=== PATIENT | male | born 1980 | race Caucasian/White ===

== ENCOUNTER 2016-09-19 14:49 | Inpatient (IN) | payer OTHER ==
[~2016-09-19] VITALS: Ht 180.3 cm; Wt 148.0 kg
[~2016-09-19 14:49] MED LIST: BACTRIM,SEPT1 TABLET PO; CATAPRES0.1 MG PO; CLINDAMYCIN HC300 MG PO; COLACE100 MG PO; CYCLOBENZAPRINE10 MG PO; FLEXERIL10 MG PO; FLONASE16 G1; FLONASE16 G1 BOTH NARES; Flagyl PO; Flonase BOTH NARES; KEFLEX500 MG PO; LISINOPRIL20 MG PO; LISINOPRIL40 MG PO; MEN'S MULTI-VI1 EACH PO; MORPHINE SULFAT15 M1 PO; MORPHINE SULFAT15 MG PO; MOTRIN600 MG PO; NAPROSYN500 MG PO; OXYCODONE HCL5 M1 PO; OXYCODONE HCL5 MG PO; PROMETHAZINE HC25 M1 PO; TOPAMAX100 MG PO; TOPAMAX25 MG PO; TOPAMAX50 MG PO; TRAMADOL HCL50 MG PO; TRAZODONE HCL50 MG PO; Topamax PO; ULTRAM50 MG PO; Zestril,Prinivil PO; oxyCODONE PO
[2016-09-19 15:17] LABS: MCH 28.4 PG (29.0-34.0); MCHC 33.6 G/DL (30.0-36.0); MCV 84.3 FL (86-99); PLATELET COUNT 287 K/uL (156-360); RBC DIS.WIDTH-CV 12.7 % (11.8-14.6); RBC DIS.WIDTH-SD 39.1 % (39-53); RED BLOOD COUNT 5.22 M/uL (4.00-5.50); WHITE BLOOD COUNT 16.8 K/uL (4.1-10.2)
[2016-09-19 15:22] LABS: CHLORIDE 102 mEq/L (99-109); POTASSIUM 3.5 mEq/L (3.7-5.4); SODIUM 137 mEq/L (136-147)
[2016-09-19 15:24] LABS: GLUCOSE 235 mg/dL (70-99)
[2016-09-19 15:25] LABS: ANION GAP 12 MEQ/L (2-14)
[2016-09-19 15:26] LABS: TOTAL BILIRUBIN 1.2 mg/dL (0.0-1.0)
[2016-09-19 15:27] LABS: ALKALINE PHOSPHATASE 123 IU/L (3-129)
[2016-09-19 15:28] LABS: GFR ESTIMATE (CALCULATED) > 59 mL/min/
[2016-09-19 15:29] LABS: UREA NITROGEN (BUN) 14 mg/dL (9-23)
[2016-09-19 15:31] LABS: CREATINE KINASE 404 IU/L (1-294); TOTAL CK 404 IU/L (1-294)
[2016-09-19 15:33] LABS: TROP-I INTERPRETATION NEGATIVE; TROPONIN-I < 0.01 ng/mL (0.0-0.30)
[2016-09-19 15:36] LABS: CK-MB 8.1 ng/mL (0.0-4.9)
[2016-09-19 15:50] LABS: SERUM ETHYL ALCOHOL < 10 mg/dL
[2016-09-19 15:55] LABS: ADD MIUA? YES; BILIRUBIN NEGATIVE; BLOOD NEGATIVE; COLOR YELLOW ((YELLOW)); GLUCOSE (STRIP) 50; KETONES NEGATIVE; LEUKOCYTES NEGATIVE; NITRITE NEGATIVE; PROTEIN (STRIP) 100; SPECIFIC GRAVITY 1.015 (1.000-1.030)
[2016-09-19 16:06] LABS: BASE EXCESS -3.2 mEq/L (-3 to +3); BICARBONATE 26.6 mEq/L (22-26); CARBOXY HGB 1.7 % (0-5); METHEMOGLOBIN 0.8 % (0-1.5); PO2 59 mm Hg (80-100)
[2016-09-19 16:07] LABS: COMMENTS - BLOOD GASES C+; PCO2 68 mm Hg (35-45); SITE RR
[2016-09-19 16:08] LABS: DEVICE VENT; FI02 100 %; MECHANICAL RATE 16 resp/min; MODE AC; PEEP 10 CM/H20; TIDAL VOLUME 650 ML; TOTAL RESP RATE 19 resp/min
[2016-09-19 16:10] LABS: ADD MEDTOX COMMENT Y; AMPHETAMINE NEGATIVE (500 ng/mL); BARBITURATES NEGATIVE (200 ng/mL); BENZODIAZEPINES NEGATIVE (150 ng/mL); COCAINE PRESUMPTIVE POSITIVE (150 ng/mL); INTERNAL CONTROLS VALID? YES; METHADONE NEGATIVE (200 ng/mL); METHAMPHETAMINE NEGATIVE (500 ng/mL); OPIATES (MORPHINE) PRESUMPTIVE POSITIVE (100 ng/mL); OXYCODONE NEGATIVE (100 ng/mL); PHENCYCLIDINE NEGATIVE (25 ng/mL); PROPOXYPHENE NEGATIVE (300 ng/mL); THC CANNABINOIDS PRESUMPTIVE POSITIVE (50 ng/mL); TRICYCLIC ANTIDEPRESSANTS PRESUMPTIVE POSITIVE (300 ng/mL)
[2016-09-19 16:12] LABS: BACTERIA NONE SEEN /HPF; EPITHELIAL CELLS RARE /HPF; MUCUS TRACE /LPF; RED BLOOD CELLS 0-5 /HPF (0-5); UCUL ADDED? NO; WHITE BLOOD CELLS 0-5 /HPF (0-5)
[2016-09-19 16:13] LABS: CASTS PRESENT /LPF; CRYSTALS NONE SEEN; HYALINE CASTS 20-30 /LPF
[2016-09-19 16:33] LABS: BASOPHIL COUNT 0.1 K/uL (0-0.1); EOSINOPHIL (%) 2.4 % (0-5); EOSINOPHIL COUNT 0.4 K/uL (0-0.3); HEMATOLOGY COMMENT 1 SMEAR COMPATIBLE; IMMATURE GRANULOCYTE (%) 0.4 % (0.0-0.7); IMMATURE GRANULOCYTE COUNT 0.7 K/uL; LYMPHOCYTE COUNT 9.2 K/uL (1.0-2.8); MONOCYTE (%) 10.7 % (3-12); MONOCYTE COUNT 1.8 K/uL (0-0.8); NEUTROPHIL (%) 31.1 % (45-76); NEUTROPHIL COUNT 5.2 K/uL (1.8-6.4); USER ID WCD
[2016-09-19 17:56] LABS: BASE EXCESS -2.4 mEq/L (-3 to +3); CARBOXY HGB 1.7 % (0-5); DEVICE 840; FI02 100 %; MECHANICAL RATE 20 resp/min; METHEMOGLOBIN 0.8 % (0-1.5); MODE AC; PCO2 52 mm Hg (35-45); PO2 77 mm Hg (80-100); SITE RR; TIDAL VOLUME 650 ML; TOTAL RESP RATE 28 resp/min; pH 7.29 (7.35-7.45)
[2016-09-19 17:57] LABS: COMMENTS - BLOOD GASES A+C+; INSPIRATION TIME 0.9 seconds; PEEP 5 CM/H20
[2016-09-19] MEDS ORDERED: LISINOPRIL40 MG PO (18:54)
[2016-09-19] MEDS ORDERED: MEN'S MULTI-VI1 EACH PO (18:54)
[2016-09-19] MEDS ORDERED: CYCLOBENZAPRINE10 MG PO (18:55)
[2016-09-19] MEDS ORDERED: CATAPRES0.1 MG PO (18:55)
[2016-09-19] MEDS ORDERED: TOPAMAX100 MG PO (18:55)
[2016-09-19] MEDS ORDERED: MORPHINE SULFAT15 MG PO (18:56)
[2016-09-19] MEDS ORDERED: FLONASE16 G1 BOTH NARES (18:56)
[2016-09-19] MEDS ORDERED: MORPHINE SULFAT15 M1 PO (18:56)
[2016-09-19] MEDS ORDERED: MOTRIN600 MG PO (18:58)
[2016-09-19 21:30] VITALS: BP 131/73
[2016-09-19 21:36] VITALS: BP 131/73
[2016-09-19 22:00] VITALS: BP 124/60
[2016-09-19 22:30] VITALS: BP 75/39
[2016-09-19 22:45] VITALS: BP 51/32
[2016-09-19 23:00] VITALS: BP 132/65
[2016-09-19 23:57] LABS: METH RESISTANT S AUREUS PCR NEGATIVE (NEGATIVE)
[2016-09-20] VITALS (18 sets, daily range): BP systolic 88–121; BP diastolic 44–74
[2016-09-20 00:29] LABS: PROBE CHECK PASS; SPECIMEN PROCESSING CONTROL PASS
[2016-09-20 06:36] LABS: HEMATOCRIT 39.9 % (38.0-50.0); MCH 28.9 PG (29.0-34.0); MCHC 34.1 G/DL (30.0-36.0); MCV 84.9 FL (86-99); RBC DIS.WIDTH-SD 39.7 % (39-53); WHITE BLOOD COUNT 18.5 K/uL (4.1-10.2)
[2016-09-20 06:48] LABS: EOSINOPHIL (%) 0 % (0-5); IMMATURE GRANULOCYTE (%) 0.3 % (0.0-0.7); IMMATURE GRANULOCYTE COUNT 0.1 K/uL; LYMPHOCYTE COUNT 1.7 K/uL (1.0-2.8); MONOCYTE (%) 3.7 % (3-12); MONOCYTE COUNT 0.7 K/uL (0-0.8); NEUTROPHIL COUNT 16.1 K/uL (1.8-6.4)
[2016-09-20 06:57] LABS: ALKALINE PHOSPHATASE 68 IU/L (3-129); ANION GAP 12 MEQ/L (2-14); CHLORIDE 103 MEQ/L (99-109); GFR ESTIMATE (CALCULATED) > 59 mL/min/; GLUCOSE 151 mg/dL (70-99); POTASSIUM 3.5 MEQ/L (3.7-5.4); SAMPLE HEMOLYSIS CHECK 0; SAMPLE ICTERIC CHECK 0; SAMPLE LIPEMIA CHECK 0; SODIUM 137 MEQ/L (136-147); TOTAL BILIRUBIN 1.4 MG/DL (0.0-1.0); UREA NITROGEN (BUN) 13 mg/dL (9-23)
[2016-09-20 07:22] LABS: MEAN PLAT.VOLUME 9.8 uM^3 (9.0-12.4); PLAT.SUFFICIENCY ADEQUATE; PLATELET COUNT 185 K/uL (156-360)
[2016-09-20 12:41] LABS: HIV INDEX 0.06; HIV-1/2 AB/AG COMBO Nonreactive
[2016-09-20 13:02] LABS: HPCA INDEX 11.75
[2016-09-20 17:47] LABS: POINT-OF-CARE METER ID UU13113748
[2016-09-21] VITALS (12 sets, daily range): BP systolic 97–149; BP diastolic 57–96
[2016-09-21 06:43] LABS: ANION GAP 6 MEQ/L (2-14); CHLORIDE 104 MEQ/L (99-109); POTASSIUM 3.6 MEQ/L (3.7-5.4); SAMPLE HEMOLYSIS CHECK 0; SAMPLE ICTERIC CHECK 0; SAMPLE LIPEMIA CHECK 0; SODIUM 137 MEQ/L (136-147)
[2016-09-21 06:50] LABS: GFR ESTIMATE (CALCULATED) > 59 mL/min/; UREA NITROGEN (BUN) 9 mg/dL (9-23)
[2016-09-21 06:51] LABS: GLUCOSE 113 mg/dL (70-99)
[2016-09-21 07:28] LABS: POINT-OF-CARE METER ID UU13113803
[2016-09-21 07:31] LABS: EOSINOPHIL (%) 3.6 % (0-5); EOSINOPHIL COUNT 0.3 K/uL (0-0.3); HEMATOCRIT 32.5 % (38.0-50.0); LYMPHOCYTE COUNT 2.1 K/uL (1.0-2.8); MCHC 34.2 G/DL (30.0-36.0); MCV 84.9 FL (86-99); MEAN PLAT.VOLUME 9.8 uM^3 (9.0-12.4); MONOCYTE (%) 6.2 % (3-12); MONOCYTE COUNT 0.4 K/uL (0-0.8); NEUTROPHIL (%) 59.7 % (45-76); NEUTROPHIL COUNT 4.2 K/uL (1.8-6.4); PLATELET COUNT 130 K/uL (156-360); RBC DIS.WIDTH-CV 12.9 % (11.8-14.6); RBC DIS.WIDTH-SD 39.8 % (39-53); RED BLOOD COUNT 3.83 M/uL (4.00-5.50)
[2016-09-21 12:53] LABS: POINT-OF-CARE METER ID UU13113803
[2016-09-21 16:47] LABS: POINT-OF-CARE METER ID UU14149397
[2016-09-21 22:11] LABS: POINT-OF-CARE METER ID UU14188577
[2016-09-22 00:16] VITALS: BP 140/73
[2016-09-22 03:29] VITALS: BP 134/77
[2016-09-22 08:40] LABS: POINT-OF-CARE METER ID UU14188577
[2016-09-22 09:00] VITALS: BP 139/87
[2016-09-22] MEDS ORDERED: CLONIDINE HCL0.2 MG PO (12:31)
[2016-09-22] MEDS ORDERED: LEVOFLOXACIN500 MG PO (12:31)
== END 2016-09-22 14:23 | disposition home or self-care (01) | DRG 917 ==
LOC: EME → EDBD 14:49 → EME 14:49 → EDOF 18:00 → 3EAST 18:00 → 4WEST 18:00 → 3EAST 09-21 13:38
PROVIDERS: Anesthesiology; Emergency Medicine; Hospitalist; Internal Medicine; Internal Medicine Pulmonary Disease
DX: T40.2X1A Poisoning by other opioids, accidental (unintentional), initial encounter (principal); J69.0 Pneumonitis due to inhalation of food and vomit; I46.9 Cardiac arrest, cause unspecified; J96.00 Acute respiratory failure, unspecified whether with hypoxia or hypercapnia; M79.661 Pain in right lower leg; G89.29 Other chronic pain; Z88.0 Allergy status to penicillin; Z88.8 Allergy status to other drugs, medicaments and biological substances; E11.9 Type 2 diabetes mellitus without complications; E78.5 Hyperlipidemia, unspecified; F32.9 Major depressive disorder, single episode, unspecified; Z87.891 Personal history of nicotine dependence; I10 Essential (primary) hypertension; E66.01 Morbid (severe) obesity due to excess calories
CPT/HCPCS: 36600; 70450; 71010; 71275; 80048; 80053; 81003; 82550; 82553; 82803; 82948; 83605; 83880; 84484; 84999; 85025; 86703; 86803; 87040; 87070; 87077; 87185; 87205; 87641; 93005; 94002; 94003; 94640; 94640 76; 94799; 99202; 99281; 99285; C1894; G0480; J0461; J1815; J1956; J2250; J2310; J2543; J2704; J3010; J3370; J7030

== ENCOUNTER → 2017-05-14 | Outpatient (CLI) | payer OTHER ==
[~2017-05-14] VITALS: Ht 170.2 cm; Wt 151.9 kg
[~2017-05-14] MED LIST changes: +CLONIDINE HCL0.2 MG PO; +LEVOFLOXACIN500 MG PO; +NEURONTIN800 MG PO; +SUBOXONE 4 MG-1 EACH SL
== END | disposition home or self-care (01) ==
LOC: AMB 13:36
DX: K63.3 Ulcer of intestine (principal); K64.8 Other hemorrhoids; Z90.49 Acquired absence of other specified parts of digestive tract; E66.9 Obesity, unspecified; Z68.43 Body mass index [BMI] 50.0-59.9, adult; B18.2 Chronic viral hepatitis C; E78.5 Hyperlipidemia, unspecified; I10 Essential (primary) hypertension; R73.03 Prediabetes; G47.30 Sleep apnea, unspecified; Z98.1 Arthrodesis status; Z88.0 Allergy status to penicillin; Z88.8 Allergy status to other drugs, medicaments and biological substances
CPT/HCPCS: 88305